=== PATIENT | female | born 1955 | race Caucasian/White ===

== ENCOUNTER 2018-03-13 12:33 | Emergency (ER) | payer MEDICAID ==
[~2018-03-13] VITALS: Ht 147.3 cm; Wt 112.9 kg
[~2018-03-13 12:33] MED LIST: DOC-Q-LACE100 MG PO; FOSAMAX70 MG PO; LEVOTHYROXINE0.15 M2 PO; MONTELUKAST SOD10 M1 PO; NOR10T PO; PRE10 PO; SPIRIVA18 MC1; SYMBICORT1 AE2 INH
[2018-03-13 13:08] VITALS: Ht 147.3 cm; Wt 112.9 kg
[2018-03-13 15:16] LABS: PLATELET COUNT 260 x10^3mcL (130-400)
[2018-03-13 15:17] LABS: CALCIUM 8.4 mg/dL (8.5-10.1); CARBON DIOXIDE 27.5 mmol/L (21-32); CHLORIDE SERUM 104 mmol/L (98-107); CREATININE SERUM 0.7 mg/dL (0.6-1.0); GFR1 > 60 mL/min; GLUCOSE SERUM 108 mg/dL (74-106); POTASSIUM SERUM 3.8 mmol/L (3.5-5.1); SODIUM SERUM 135 mmol/L (136-145)
[2018-03-13 15:21] LABS: RED CELL DISTRIBUTION WIDTH 14.6 % (11.5-14.5)
[2018-03-13 15:22] LABS: ALKALINE PHOSPHATASE 108 U/L (46-116); ALT/SGPT 24 U/L (14-59); AST/SGOT 14 U/L (15-37); TOTAL PROTEIN, SERUM 7.1 g/dL (6.4-8.2)
[2018-03-13 15:23] LABS: ALBUMIN 3.1 g/dL (3.4-5.0)
[2018-03-13 15:43] LABS: BAND NEUTROPHIL 5 % (0-10); BASOPHIL 0 % (0-2); MONOCYTE 6 % (0-7); SEGMENTED NEUTROPHILS 76 % (37-75); rbc morphology (normal/abnorm) ABNORMAL (NORMAL)
[2018-03-13 15:44] LABS: PLATELET MORPHOLOGY GIANT PLATELET SEEN
[2018-03-13 16:35] VITALS: BP 120/60
== END 2018-03-13 16:35 | disposition home or self-care (01) ==
LOC: ED 12:33
PROVIDERS: Emergency Medicine
DX: M54.9 Dorsalgia, unspecified (principal); R53.1 Weakness; M79.642 Pain in left hand; M79.641 Pain in right hand; J45.909 Unspecified asthma, uncomplicated; I10 Essential (primary) hypertension; Z90.49 Acquired absence of other specified parts of digestive tract; Z90.89 Acquired absence of other organs
CPT/HCPCS: J1885; J2405; J3010

== ENCOUNTER 2019-01-27 01:36 | Inpatient (IN) | payer MEDICAID ==
[~2019-01-27] VITALS: Ht 152.4 cm; Wt 116.7 kg
[2019-01-27 01:43] VITALS: Ht 152.4 cm; Wt 116.7 kg
--- NOTE | 2019-01-27 02:00 | NUR ---
PATIENT WAS BROUGHT IN BY FAMILY WITH COMPLAINT OF SHORTNESS OF BREATH. PATIENT IS ALERT AND VERBAL. SKIN WARM TO TOUCH . RECTAL TEMP 103. PATIENT IS HAVING DYSPNEA BUT CAN TALK FULL SENTENCE. PATIENT SEEN BY MD. RESPIRATORY CALL TO GIVE BREATHING TREATMENT.
--- NOTE | 2019-01-27 02:27 | NUR ---
LAB DRAW BLOOD AND BLOOD CULTURES. PORTABLE CHEST XRAY WAS DONE.PATIENT MEDICATED WITH TYLENOL FOR FEVER. RESPIRATORY AT THE BEDSIDE, BREATHING TREATMENT GIVEN.
[2019-01-27 02:37] LABS: CALCIUM 8.9 mg/dL (8.5-10.1); CARBON DIOXIDE 28.7 mmol/L (21-32); CHLORIDE SERUM 104 mmol/L (98-107); CREATININE SERUM 0.9 mg/dL (0.6-1.0); GFR1 > 60 mL/min; GLUCOSE SERUM 136 mg/dL (74-106); POTASSIUM SERUM 4.2 mmol/L (3.5-5.1); SODIUM SERUM 142 mmol/L (136-145)
[2019-01-27 02:41] LABS: ALBUMIN 3.4 g/dL (3.4-5.0); ALKALINE PHOSPHATASE 113 U/L (46-116); ALT/SGPT 18 U/L (14-59); AST/SGOT 17 U/L (15-37); BILIRUBIN TOTAL 0.5 mg/dL (0.20-1.00); TOTAL PROTEIN, SERUM 6.9 g/dL (6.4-8.2)
[2019-01-27 02:55] LABS: BASOPHIL % 0.1 % (0-2); PLATELET COUNT 271 x10^3mcL (130-400); RED CELL DISTRIBUTION WIDTH 14.5 % (11.5-14.5)
--- NOTE | 2019-01-27 03:45 | NUR ---
PATIENT IS ADMITTED, REPORT WAS GIVEN TO JANA.
--- NOTE | 2019-01-27 04:10 | NUR ---
PATIENT TRANSPORTED TO THE ROOM 210.
[2019-01-27 04:23] LABS: MAGNESIUM 1.4 mg/dL (1.8-2.4)
--- NOTE | 2019-01-27 04:25 | NUR ---
ADMITTED PT WITH CC: INCREASING SOB TODAY AND CHILLS/FEVER TO 103.OF PER DAUGHTER IN LAW.A/O X4.MOLDOVAN SPEAKING ONLY.BREATHING SLIGHTLY LABORED.O2 @ 2L/MIN VIA N/C.O2 SAT @ 97%.O2 @ 2L/MIN VIA N/C.WHEEZING AND FINE CRACKLE AUSCULTATED.NO COUGHING/CONGESTION NOTED.DENIES CHESTPAIN.BP 112/60 MMHG,HR 122.LATEST TEMP @ 98.9F.PLACED ON TELE # 7 WITH READING NSR.ADMISSION CARE RENDRED.ORIENTATION TO ROOM AND CALL BUTTON PROVIDED.WILL CONTINUE TO MONITOR.
[2019-01-27 04:40] VITALS: BP 112/60
[2019-01-27 05:57] VITALS: BP 122/64
--- NOTE | 2019-01-27 06:30 | NUR ---
DR LANGLEY MADE AWARE ABOUT FIRST TROP LEVEL OF 0.238 AND MAGNESIUM LEVEL=1.4. MD WITH ORDER RECEIVED AND RELAYED TO ASSIGNED NURSE JANA -RN.
--- NOTE | 2019-01-27 06:57 | NUR ---
BOLUS 7000 UNIT OF HEPARIN GIVEN PER PROTOCOL. INITIAL INFUSION OF HEPARIN STARTED 1400 UNITS/HR. WILL RECHECK PTT IN 6HR.
--- NOTE | 2019-01-27 07:27 | NUR ---
GAVE REPORT TO AM RNMARGARETH. PT IS AWAKE AND ALERT.
--- NOTE | 2019-01-27 07:31 | NUR ---
A+OX4, NO RESPRIATORY DISTRESS NOTED, TELE 7, PULSES MODERATE AND EQUAL IGNACIO, NO EDEMA NOTED, LUNG SOUNDS CTA, TOELRATING RA, BOWEL SOUNDS ACTIVE, VOIDING FREELY, GENERALIZED WEAKNESS, SKIN INTACT, IV IN LFA WITH HEPARIN DRIP @ 1400 UNITS, SITE WNL.
--- NOTE | 2019-01-27 07:46 | NUR ---
DR LANGLEY NOTIFIED OF TROP 2.082.
--- NOTE | 2019-01-27 09:18 | NUR ---
PT RESTING IN BED, NO RESPIRATORY DISTRESS NOTED, DENIES CHEST PAIN, ASSISTED PT TO TELEPHONE FAMILY, PT HAS POOR APPETITE AND ONLY DRANK ORANGE JUICE, PT ENCOURAGED TO EAT, CALL LIGHT WITHIN REACH.
--- NOTE | 2019-01-27 09:39 | NUR ---
ASSISTED PT TO BATHROOM AND BACK TO BED, SOB WHILE AMBULATING, CALL LIGHT WITHIN REACH.
[2019-01-27 09:40] VITALS: BP 117/78
[2019-01-27 10:59] LABS: UA SPECIFIC GRAVITY <=1.005 (1.005-1.035); microscopic required? YES; urine erythrocyte 1+ (NEGATIVE)
--- NOTE | 2019-01-27 11:15 | NUR ---
NEW IV PLACED IN RFA BY YARITZA URRUTIA, BLOOD RETURN PRESENT, FLUSHING WELL. PT RESTING IN BED, NO RESPIRATORY DISTRESS NOTED, DENIES CHEST PAIN, CALL LIGHT WITHIN REACH.
--- NOTE | 2019-01-27 11:32 | NUR ---
ASSISTED PT TO BATHROOM AND BACK TO CHAIR AT BEDSIDE, SOB DURING AMBULATION, CALL LIGHT WITHIN REACH.
[2019-01-27 11:49] VITALS: BP 133/78
--- NOTE | 2019-01-27 12:20 | NUR ---
DR CHAPPELL NOTIFIED OF TROP 2.082. DR CHAPPELL ORDERED EKG TODAY AND TOMORROW, LISINOPRIL PO AND ATORVASTATIN PO. ALL ORDERS READ BACK, CONFIRMED AND ENTERED.
--- NOTE | 2019-01-27 12:33 | NUR ---
PT COMPLAINING OF BACK PAIN 12/16, REQUESTING NORCO PO, NORCO PO GIVEN, NO RESPRIATORY DISTRESS NOTED, CALL LIGHT WITHIN REACH.
--- NOTE | 2019-01-27 13:30 | NUR ---
PT RESTING IN BED, NO RESPIRATORY DISTRESS NOTED, DENIES CHEST PAIN, FAMILY AT BEDSIDE, CALL LIGHT WITHIN REACH.
--- NOTE | 2019-01-27 14:03 | NUR ---
DR LANGLEY NOTIFIED OF TROP 2.308.
--- NOTE | 2019-01-27 14:11 | NUR ---
PTT 53.9, NO CHANGE TO INFUSION. PTT ORDERED FOR 1800.
--- NOTE | 2019-01-27 16:39 | NUR ---
PT RESTING IN BED, NO RESPIRATORY DISTRESS NOTED, COMPLAINING OF 7/10 BACK PAIN, REQUESTING NORCO PO, NORCO PO GIVEN, FAMILY AT BEDSIDE, CALL LIGHT WITHIN REACH.
--- NOTE | 2019-01-27 16:46 | NUR ---
ASSISTED PT TO SIT IN CHAIR AT BEDSIDE, NO RESPRIATORY DISTRESS NOTED, CALL LIGHT WITHIN REACH.
[2019-01-27 16:57] VITALS: BP 117/70
--- NOTE | 2019-01-27 17:13 | NUR ---
PT GIVEN TYLENOL PO FOR TEMP 100.0, ICE PACKS PLACED ON FOREHEAD, BACK OF NECK, AND BOTH ARMPITS, PT AWARE OF TEMP AND REFUSING TO PUT AC ON. FAMILY AT BEDSIDE, CALL LIGHT WITHIN REACH.
--- NOTE | 2019-01-27 18:13 | NUR ---
PT RESTING IN BED, NO RESPIRATORY DISTRESS NOTED, DENIES CHEST PAIN, TEMP RECHECK AFTER TYLENOL AND ICE PACKS: 97.9 ORAL. FAMILY AT BEDSIDE, CALL LIGHT WITHIN REACH.
--- NOTE | 2019-01-27 18:54 | NUR ---
PTT 49.6, NO CHANGE TO INFUSION.
--- NOTE | 2019-01-27 19:15 | NUR ---
ENDORSED CARE TO MADELEINE URRUTIA AND KARO URRUTIA.
--- NOTE | 2019-01-27 19:35 | NUR ---
RECIEVED PT FROM AM NURSE. PT IS AWAKE AND ALERT. PT DENIES ANY S/S OF PAIN AT THIS TIME. WHEEZING NOTED BILATERALLY UPON AUSCULTATION. PT IS ON 2L 02 NASAL CANNULA. NO RESPIRATORY DISTRESS OR SOB NOTED. ON TELE #7, NSR. DENIES CHEST PAIN AT THIS TIME. MILD GENERALIZED WEAKNESS, BUT ABLE TO AMBULATE WITH SLOW, STEADY GAIT. HEPARIN DRIP INFUSING AT 1400 UNITS/HR. ABDOMINAL OBESE WITH ACTIVE BOWEL SOUNDS. DENIES ABDOMINAL PAIN. VOIDING FREELY. WILL CONTINUE TO MONITOR.
[2019-01-27 20:32] VITALS: BP 104/62
--- NOTE | 2019-01-27 22:45 | NUR ---
DR CHAPPELL MADE AWARE OF PT'S TROP:2.275, NEW ORDER RECEIVED CANCELED THE [facility] TROP LAB DRAW.
[2019-01-28 05:56] VITALS: BP 103/61
--- NOTE | 2019-01-28 06:02 | NUR ---
PT IS ASLEEP AND EASILY AROUSABLE. SLEPT ON AND OFF ALL NIGHT. BREATHING EVEN AND UNLABORED. 2L O2 NASAL CANNULA. NO RESPIRATORY DISTRESS OR SOB NOTED. HEPARIN DRIP STILL INFUSING AT 1400 UNITS/HR. MORNING BLOOD SUGAR IS 117. NO RISS. MEDICATED 1X NORCO FOR BACK PAIN WITH GOOD RELIEF.
[2019-01-28 06:18] LABS: BASOPHIL % 0.4 % (0-2); PLATELET COUNT 235 x10^3mcL (130-400)
[2019-01-28 06:31] LABS: CALCIUM 7.6 mg/dL (8.5-10.1); CARBON DIOXIDE 26.5 mmol/L (21-32); CHLORIDE SERUM 103 mmol/L (98-107); CREATININE SERUM 0.8 mg/dL (0.6-1.0); GFR1 > 60 mL/min; GLUCOSE SERUM 99 mg/dL (74-106); POTASSIUM SERUM 3.4 mmol/L (3.5-5.1); SODIUM SERUM 138 mmol/L (136-145)
[2019-01-28 06:51] LABS: RED CELL DISTRIBUTION WIDTH 14.6 % (11.5-14.5)
--- NOTE | 2019-01-28 07:48 | NUR ---
A+OX4, NO RESPIRATORY DISTRESS NOTED, TELE 7, PULSES MODERATE AND EQUAL IGNACIO, NO EDEMA NOTED, WHEEZING IGNACIO, 1L NC, BOWEL SOUNDS ACTIVE, VOIDING FREELY, GENERALIZED WEAKNESS, SKIN INTACT, IV IN LFA WITH HEPARIN DRIP @ 1400 UNITS SITE WNL, IV IN RFA SALINE LOCKED SITE WNL.
--- NOTE | 2019-01-28 08:13 | NUR ---
PTT 52.1 NO CHANGE TO INFUSION. PTT REORDERED FOR 01/29 @ 0500.
[2019-01-28 08:21] VITALS: BP 112/58
--- NOTE | 2019-01-28 08:54 | NUR ---
PT RESTING IN BED, NO RESPRIATORY DISTRESS NOTED, COMPLAINING OF 8/10 BACK PAIN, NORCO PO GIVEN, CALL LIGHT WITHIN REACH.
--- NOTE | 2019-01-28 11:47 | NUR ---
PT SITTING IN CHAIR AT BEDSIDE, NO RESPRIATORY DISTRESS NOTED, DENIES PAIN, FAMILY AT BEDSIDE, CALL LIGHT WITHIN REACH.
[2019-01-28 13:03] VITALS: BP 101/56
--- NOTE | 2019-01-28 13:38 | NUR ---
PT SITTING IN CHAIR AT BEDSIDE, NO RESPRIATORY DISTRESS NOTED, DENIES PAIN, FAMILY AT BEDSIDE, CALL LIGHT WITHIN REACH.
--- NOTE | 2019-01-28 14:10 | NUR ---
DR CHAPPELL AT BEDSIDE TO ASSESS PT. DR CHAPPELL EXPLAINED NEED TO TRAN[place] [facility] [place] AND POSSIBLE STENT PLACEMENT. PT AND FAMILY VERBALIZED UNDERSTANDING AND AGREED TO TRANSFER. PER DR CHAPPELL, CONT HEPARIN DRIP AND TRANSFER [place] [facility] [place]OM[place] 01/29. PT AND FAMILY AWARE AND ALL QUESTIONS ADDRESSED.
--- NOTE | 2019-01-28 16:45 | NUR ---
PT RESTING IN BED, NO RESPIRATORY DISTRESS NOTED, COMPLAINING OF 7/10 BACK PAIN, REQUESTING NORCO PO, NORCO PO GIVEN, CALL LIGHT WITHIN REACH.
[2019-01-28 17:20] VITALS: BP 103/39
--- NOTE | 2019-01-28 18:30 | NUR ---
PT SITTING IN CHAIR AT BEDSIDE, NO RESPIRATORY DISTRESS NOTED, FAMILY AT BEDSIDE, CALL LIGHT WITHIN REACH.
--- NOTE | 2019-01-28 19:24 | NUR ---
ENDORSED CARE TO KARO AND MADELEINE URRUTIA.
--- NOTE | 2019-01-28 19:30 | NUR ---
RECIEVED PT FROM AM NURSE. PT IS AWAKE AND ALERT . PT DENIES ANY S/S OF PAIN AT THIS TIME. DIMINISHED BREATH SOUNDS NOTED BILATERALLY UPON AUSCULTATION. PT IS ON 2L 02 NASAL CANNULA. NO RESPIRATORY DISTRESS OR SOB NOTED. ON TELE #7, NSR. DENIES CHEST PAIN AT THIS TIME. MILD GENERALIZED WEAKNESS, BUT ABLE TO AMBULATE WITH SLOW, STEADY GAIT. HEPARIN DRIP INFUSING AT 1400 UNITS/HR. ABDOMINAL OBESE WITH ACTIVE BOWEL SOUNDS. DENIES ABDOMINAL PAIN. VOIDING FREELY. WILL CONTINUE TO MONITOR.
[2019-01-28 21:25] VITALS: BP 98/47
--- NOTE | 2019-01-29 06:00 | NUR ---
PT IS ASLEEP AND EASILY AROUSABLE. SLEPT ON AND OFF ALL NIGHT. BREATHING EVEN AND UNLABORED. 2L O2 NASAL CANNULA. NO RESPIRATORY DISTRESS OR SOB NOTED. HEPARIN DRIP STILL INFUSING AT 1400 UNITS/HR. MORNING BLOOD SUGAR IS 101. NO RISS. MEDICATED 1X NORCO FOR BACK PAIN WITH GOOD RELIEF.
[2019-01-29 06:10] VITALS: BP 97/43
--- NOTE | 2019-01-29 06:16 | NUR ---
PT WAS GIVEN PARTIAL BED BATH AFTER USING BATHROOM. GOWN WAS CHANGED.
[2019-01-29 06:30] LABS: BASOPHIL % 0.5 % (0-2); PLATELET COUNT 260 x10^3mcL (130-400)
[2019-01-29 06:43] LABS: CALCIUM 8.2 mg/dL (8.5-10.1); CARBON DIOXIDE 28.1 mmol/L (21-32); CHLORIDE SERUM 105 mmol/L (98-107); CREATININE SERUM 0.8 mg/dL (0.6-1.0); GFR1 > 60 mL/min; GLUCOSE SERUM 103 mg/dL (74-106); POTASSIUM SERUM 4.1 mmol/L (3.5-5.1); SODIUM SERUM 141 mmol/L (136-145)
[2019-01-29 07:27] LABS: RED CELL DISTRIBUTION WIDTH 14.9 % (11.5-14.5)
--- NOTE | 2019-01-29 08:00 | NUR ---
RECEIVED PATIENT ALERT/ORIENTED X4; IRISH SPEAKING. OBESITY. TELE#7; SR; HR = 78. DENIED CHEST PAIN NOW. BREATHING SOUND DIMINISHED IGNACIO BASES. O2 SAT 99% ON 2L VIA N/C. RT PROTOCOL. HEPARIN DRIP 1400 UNITS/HR. IV TO LFA AND RFA; BOTH PATENT. NO LEG EDEMA NOTED. DENIED PAIN. TOLERATED CARDIAC DIET BREAKFAST. FAMILY AT BED SIDE. CALL LIGHT IN REACH.
[2019-01-29 09:02] VITALS: BP 102/46
--- NOTE | 2019-01-29 09:36 | NUR ---
DR. LANGLEY AND DR. CHAPPELL CAME TO SEE PATIENT. NEW ORDER WRITTEN.
--- NOTE | 2019-01-29 10:00 | NUR ---
PTT = 44.4; INCREASED HEPARIN DOSE TO 1600 UNITS/HR; 5000 UNITS HEAPRIN BOLUS IVP GIVEN; NEXT PTT SCHEDULED AT 1400 PER PROTOCOL.
[2019-01-29 11:44] VITALS: BP 107/56
--- NOTE | 2019-01-29 15:15 | NUR ---
PTT = 72.6; HEPARIN DRIP DECREASED TO 1400 UNITS/HR. NEXT PTT DRAW SCHEDULED AT 1914.
[2019-01-29 17:41] VITALS: BP 127/99
[2019-01-29 18:17] VITALS: BP 127/99
--- NOTE | 2019-01-29 18:37 | NUR ---
CALLED [facility] [phone] FOR REPORT. BRODIE, CHARGE NURSE ANSWERED. SHE SAID THE BED WAS NOT AVAILABLE NOW. SHE ASKED ME TO CALL FOR REPORT AFTER 190. I GAVE OUR STATION PHONE NUMBER AND ASKED [facility] CALL US WHEN BED IS AVILABLE. I NOTIFIED RBODIE, CHARGE NURSE, 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
--- NOTE | 2019-01-29 19:20 | NUR ---
RECIEVED PT RESTING IN BED WITH FAMILY MEMEBERS AT BEDSIDE, ASSESSMENT PERFORMED AT THIS TIME, PT IS A/OX NO COMPLAINTS OF NINA OR DIZZINESS, PT DENIES CHEST PAIN/PRESSURE OR SOB AT THIS TIME, PT IS ON TELE 7, NSR, PT IS ON 2L NC TOLERATING WELL, ALL NEEDS ATTENDED TO, SAFETY PRECAUTIONS IN PLACE, WILL CONTINUE TO MONITOR
--- NOTE | 2019-01-29 19:20 | NUR ---
[facility] [facility] [place]PORT GIVEN TO RENAN ZURITA. RAC IV D/C'D. ENDORSED CARE TO RENAN SANCHEZ. NOC.
[2019-01-29 20:24] VITALS: BP 114/66
--- NOTE | 2019-01-29 20:37 | NUR ---
[facility] ARRIVED TO TRANSFER PT TO [facility] FOR ANGIO, PT IS STABLE, DENIES SOB, CHEST PAIN OR PRESSURE, PT IS A/OX4 WITH NO ACUTE DISTRESS, DENIES NINA OR DIZZINESS, AMBULATED SORT DISTANCE TO [facility] [place] WITH ASSISSTANCE, PT WAS TAKEN OFF TELE AND HEPARIN DRIP WAS DISCONTINUED. ENDORSED CARE AND PAPERWORK TO [facility]. PT LEFT WITH IV ACCESS TI LEFT HAND.
== END 2019-01-29 20:37 | disposition short-term general hospital (02) | DRG 190 ==
LOC: ED 01:36 → DU 03:50
PROVIDERS: Emergency Medicine; ADMIT Internal Medicine
DX: I21.4 Non-ST elevation (NSTEMI) myocardial infarction (principal); J96.01 Acute respiratory failure with hypoxia; I50.43 Acute on chronic combined systolic (congestive) and diastolic (congestive) heart failure; N39.0 Urinary tract infection, site not specified; E11.65 Type 2 diabetes mellitus with hyperglycemia; B96.20 Unspecified Escherichia coli [E. coli] as the cause of diseases classified elsewhere; Z68.42 Body mass index [BMI] 45.0-49.9, adult; I11.0 Hypertensive heart disease with heart failure; I25.10 Atherosclerotic heart disease of native coronary artery without angina pectoris; E89.0 Postprocedural hypothyroidism; M81.0 Age-related osteoporosis without current pathological fracture; J45.909 Unspecified asthma, uncomplicated; Z79.84 Long term (current) use of oral hypoglycemic drugs
CPT/HCPCS: 82962; 83880; 87804; G0378; J1644; J2543; J3475; J7030; J7512; J7613; J7626; J7644